=== PATIENT | female | born 2000 | race Caucasian/White ===

== ENCOUNTER 2023-05-16 17:55 | Emergency (ER) | payer OTHER ==
[2023-05-16 18:46] VITALS: BP 125/76; PULSE 94; RESP 18; TEMP 98; BMI 28.3
[2023-05-16 19:42] LABS: EPI CELLS 12 /uL (0-25.1); HYALINE CASTS 1 /uL (0-3.1); PH,URINE 7.5 (5.0-8.0); URINE APPEARANCE CLEAR; URINE BACTERIA 27 /uL (0-1359); URINE BILIRUBIN NEGATIVE (NEGATIVE); URINE COLOR YELLOW; URINE GLUCOSE (UA) NEGATIVE (NEGATIVE); URINE KETONE NEGATIVE (NEGATIVE); URINE LEUK ESTERASE NEGATIVE (NEGATIVE); URINE NITRITE NEGATIVE (NEGATIVE); URINE PROTEIN NEGATIVE (NEGATIVE); URINE RBC 34 /uL (0-23.9); URINE UROBILINOGEN 0.2 mg/dL (0.2-1.0); URINE WBC 13 /uL (0-25.8)
[2023-05-16 19:45] LABS: HCG,QUALITATIVE URINE Positive
[2023-05-16 22:00] LABS: POTASSIUM 5.8 mmol/L (3.5-5.1)
[2023-05-16 22:03] LABS: ALBUMIN 3.8 g/dl (3.4-5.0); BLOOD UREA NITROGEN 8.2 mg/dL (7-18)
[2023-05-16 22:06] LABS: CREATININE 0.8 mg/dL (0.55-1.3)
[2023-05-16 22:08] LABS: BILIRUBIN,TOTAL 0.6 mg/dL (0.2-1)
[2023-05-16 23:09] LABS: BASO % 0.3 % (0-2.0); EOS % 1.4 % (0-4.5); HEMATOCRIT 38.7 % (32.4-45.2); HEMOGLOBIN 13.1 GM/dL (10.7-15.3); LYMPH % 34.1 % (8-40); MCH 27.9 pg (25.7-33.7); MEAN PLT VOLUME 7.9 fl (7.5-11.1); MONO % 7.7 % (3.8-10.2); NEUT % 56.5 % (42.8-82.8); PLATELET COUNT 312 10^3/uL (134-434); RBC 4.72 M/mm3 (3.60-5.2); RDW 13.7 % (11.6-15.6); WHITE BLOOD COUNT 7.1 K/mm3 (4.0-10.0)
== END 2023-05-16 23:54 | disposition home or self-care (01) ==
LOC: JER 17:55
DX: O20.0 Threatened abortion (principal); R10.30 Lower abdominal pain, unspecified; R11.0 Nausea; L29.9 Pruritus, unspecified; R10.2 Pelvic and perineal pain
CPT/HCPCS: 36415; 76817-TC; 80053; 81003; 84132; 84702; 84703; 85025; 86850; 86900; 86901; 87070; 87086; 87205; 87491; 87591; 87661; 99284-25

== ENCOUNTER 2023-10-17 12:50 | Emergency (ER) | payer OTHER ==
[2023-10-17 12:59] VITALS: BP 128/65; PULSE 98; RESP 16; TEMP 98.1; BMI 28.1
[2023-10-17] MEDS ORDERED: ACETAMINOPHEN INJECTION 100 ML IVPB ONE (13:23)
[2023-10-17] MEDS: SODIUM CHLORIDE 0.9% 500 ML INFUS.BAG IV ONE (13:30)
[2023-10-17] MEDS: ACETAMINOPHEN 1000 MG/100 ML BAG IVPB ONE (13:35)
[2023-10-17 13:41] LABS: HEMATOCRIT 41.9 % (32.4-45.2); HEMOGLOBIN 13.7 G/dL (10.7-15.3); MCH 27.3 pg (25.7-33.7); MCHC 32.6 g/dl (32.0-36.0); MEAN CELL VOLUME 83.7 fl (80-96); MEAN PLT VOLUME 8.9 fl (7.5-11.1); PLATELET COUNT 289.9 10^3/uL (134-434)
[2023-10-17] MEDS ORDERED: ONDANSETRON 4 MG/2 ML VIAL ONE (13:54)
[2023-10-17] MEDS: ONDANSETRON 4 MG/2 ML VIAL IVPUSH ONE (13:57)
[2023-10-17 14:09] LABS: ALBUMIN 4.3 g/dl (3.4-5.0); BILIRUBIN,TOTAL 1.4 mg/dl (0.2-1); CALCIUM 9.5 mg/dl (8.5-10.1); CREATININE 0.6 mg/dl (0.6-1.3); POTASSIUM 4.1 mmol/L (3.5-5.1); TOT PROT 7.4 g/dl (6.4-8.2)
== END 2023-10-17 15:35 | disposition home or self-care (01) ==
LOC: FER 12:50
PROC: 3E033NZ Introduction of Analgesics, Hypnotics, Sedatives into Peripheral Vein, Percutaneous Approach (ICD-10-PCS; principal; 2023-10-17)
PROC: 3E033GC Introduction of Other Therapeutic Substance into Peripheral Vein, Percutaneous Approach (ICD-10-PCS; 2023-10-17)
DX: R19.7 Diarrhea, unspecified (principal); R10.13 Epigastric pain; R11.0 Nausea; Z20.822 Contact with and (suspected) exposure to COVID-19
CPT/HCPCS: 0241U-QW; 36415; 80053; 81003; 83690; 84703; 85027; 87086; 99284-25; J0131

== ENCOUNTER 2023-11-21 16:44 | Emergency (ER) | payer OTHER ==
[2023-11-21 17:06] VITALS: BP 129/95; PULSE 80; RESP 18; TEMP 98.3; BMI 28.3
[2023-11-21] MEDS ORDERED: ONDANSETRON *ODT* 4 MG TABLET ONE (17:17)
[2023-11-21] MEDS: ONDANSETRON *ODT* 4 MG TABLET SL ONE (17:19)
== END 2023-11-21 18:35 | disposition home or self-care (01) ==
LOC: FER 16:44
DX: R11.2 Nausea with vomiting, unspecified (principal); R10.13 Epigastric pain; Z32.01 Encounter for pregnancy test, result positive
CPT/HCPCS: 84703; 99283-25; Q0162

== ENCOUNTER 2024-09-13 10:33 | Emergency (ER) | payer OTHER ==
[2024-09-13 10:47] VITALS: BP 132/79; PULSE 117; RESP 18; TEMP 98.2; BMI 33.0
[2024-09-13] MEDS ORDERED: ACETAMINOPHEN 500 MG TABLET (FP) ONE (10:47)
[2024-09-13] MEDS ORDERED: ONDANSETRON *ODT* 4 MG TABLET ONE (10:47)
[2024-09-13] MEDS: ONDANSETRON *ODT* 4 MG TABLET SL ONE (10:49)
[2024-09-13] MEDS: ACETAMINOPHEN 500 MG TABLET (FP) PO ONE (11:17)
== END 2024-09-13 11:59 | disposition home or self-care (01) ==
LOC: FER 10:33
DX: R11.2 Nausea with vomiting, unspecified (principal); T50.995A Adverse effect of other drugs, medicaments and biological substances, initial encounter; R10.13 Epigastric pain; R51.9 Headache, unspecified
CPT/HCPCS: 99283-25; Q0162